=== PATIENT | female | born 1995 | race American Indian/Alaskan Native ===

== ENCOUNTER 2017-02-24 17:50 | Emergency (ER) | payer MEDICAID, OTHER ==
[2017-02-24 18:02] VITALS: BP 114/60
--- NOTE | 2017-02-24 18:23 | EDM.PDOC ---
[id number] 4d ABD PAINS Time Seen by Provider: 02/24/17 18:06 Source of Information: Reports: Patient History Limitations: Reports: No limitations - History of Present Illness INITIAL COMMENTS - FREE TEXT/NARRATIVE: patient complains of lower abdominal pain midline and right lower quadrant. No fever chills. No vomiting. She complained of feeling constipated. Describes it as menstrual pain. Describes irregular menstrual history. Unsure if she's having her period at this time. She describes some whitish vaginal discharge. She is sexually active. No fever chills or night sweats. Occasional nausea. Timing/Duration: Reports: Day(s):, Gradual onset, Waxing/waning Location: suprapubic Quality: Reports: ache Severity: mild Associated Symptoms (-Female): Reports: constipation - Related Data Allergies/ADRs: Allergies Allergy/AdvReac Type Severity Reaction Status Date / Time amoxicillin [Amoxicillin] Allergy Hives Verified 02/24/17 17:54 Home Meds: Home Meds . [No Known Home Meds] 01/01/14 [History] Past Medical History - Past Health History Medical/Surgical History: Denies Medical/Surgical History Social & Family History - Tobacco Use Smoking Status *Q: Never Smoker Second Hand Smoke Exposure: No - Alcohol Use Days Per Week of Alcohol Use: 0 - Recreational Drug Use Recreational Drug Use: No ED ROS GENERAL - Review of Systems Review Of Systems: See Below Constitutional: Reports: no symptoms HEENT: Reports: No symptoms Respiratory: Reports: No Symptoms Cardiovascular: Reports: No symptoms Endocrine: Reports: no symptoms GI/Abdominal: Reports: Abdominal pain, Constipation : Reports: no symptoms Musculoskeletal: Reports: no symptoms ED EXAM, GI/ABD - Physical Exam Exam: See Below Exam Limited By: No limitations General Appearance: alert, WD/WN, no apparent distress Respiratory/Chest: no respiratory distress, lungs clear Cardiovascular: regular rate, rhythm, no murmur GI/Abdominal: normal bowel sounds, soft, non tender, no distention, tenderness ( slight tenderness to palpation to the right and left lower quadrant. No pain along the periumbilical.). No: guarding, rebound, Cadet's sign (Female) Exam: Other (patient refused pelvic exam) Back Exam: No: CVA tenderness (L), CVA tenderness (R) Extremities: normal capillary refill Neurological: alert, oriented, CN II-XII intact Psychiatric: normal affect, normal mood Skin Exam: Warm, Dry, Intact Course - Vital Signs Last Recorded V/S: Last Vital Signs Temp 98.1 F 02/24/17 17:59 Pulse 75 02/24/17 17:59 Resp 20 02/24/17 17:59 BP 114/60 02/24/17 17:59 Pulse Ox 98 02/24/17 17:59 - Orders/Labs/Meds Labs: Laboratory Tests 02/24/17 02/24/17 02/24/17 Range/Units 18:14 18:14 18:30 WBC 8.1 (5.0-10.0) 10^3/uL RBC 4.49 (4.2-5.4) 10^6/uL Hgb 13.8 (12.0-16.0) g/dL Hct 40.6 (37.0-47.0) % MCV 90.4 (80-100) fL MCH 30.7 (27.0-34.0) pg MCHC 34.0 (33.0-35.0) g/dL Plt Count 247 (150-450) 10^3/uL Neut % (Auto) 65.2 (42.2-75.2) % Lymph % (Auto) 24.0 (20.5-50.1) % [place] % (Auto) 8.1 H (2-8) % Eos % (Auto) 2.6 (1.0-3.0) % Baso % (Auto) 0.1 (0.0-1.0) % Sodium 138 (135-145) mmol/L Potassium 3.6 (3.6-5.0) mmol/L Chloride 104 (101-111) mmol/L Carbon Dioxide 27.0 (21.0-31.0) mmol/L Anion Gap 10.6 BUN 13 (7-18) mg/dL Creatinine 0.6 (0.6-1.3) mg/dL Est Cr Clr Drug Dosing 111.92 mL/min Estimated GFR (MDRD) > 60 Glucose 96 (74-105) mg/dL Calcium 9.0 (8.4-10.2) mg/dl Urine Color (YELLOW) Urine Appearance (CLEAR) Urine pH (5.0-9.0) Ur Specific Reynolds (1.005-1.030) Urine Protein (NEGATIVE) Urine Glucose (UA) (NEGATIVE) Urine Ketones (NEGATIVE) Urine Occult Blood (NEGATIVE) Urine Nitrite (NEGATIVE) Urine Bilirubin (NEGATIVE) Urine Urobilinogen (0.2-1.0) mg/dL Ur Leukocyte Esterase (NEGATIVE) Urine RBC /HPF Urine WBC (0-5/HPF) /HPF Ur Epithelial Cells /HPF Amorphous Sediment (0/HPF) /HPF Urine Bacteria (0-FEW/HPF) /HPF Urine Mucus /LPF Urine HCG, Qual Negative 02/24/17 Range/Units 18:30 WBC (5.0-10.0) 10^3/uL RBC (4.2-5.4) 10^6/uL Hgb (12.0-16.0) g/dL Hct (37.0-47.0) % MCV (80-100) fL MCH (27.0-34.0) pg MCHC (33.0-35.0) g/dL Plt Count (150-450) 10^3/uL Neut % (Auto) (42.2-75.2) % Lymph % (Auto) (20.5-50.1) % [place] % (Auto) (2-8) % Eos % (Auto) (1.0-3.0) % Baso % (Auto) (0.0-1.0) % Sodium (135-145) mmol/L Potassium (3.6-5.0) mmol/L Chloride (101-111) mmol/L Carbon Dioxide (21.0-31.0) mmol/L Anion Gap BUN (7-18) mg/dL Creatinine (0.6-1.3) mg/dL Est Cr Clr Drug Dosing mL/min Estimated GFR (MDRD) Glucose (74-105) mg/dL Calcium (8.4-10.2) mg/dl Urine Color Yellow (YELLOW) Urine Appearance Slightly cloudy (CLEAR) Urine pH 7.0 (5.0-9.0) Ur Specific Reynolds 1.020 (1.005-1.030) Urine Protein Negative (NEGATIVE) Urine Glucose (UA) Negative (NEGATIVE) Urine Ketones Negative (NEGATIVE) Urine Occult Blood Negative (NEGATIVE) Urine Nitrite Negative (NEGATIVE) Urine Bilirubin Negative (NEGATIVE) Urine Urobilinogen 0.2 (0.2-1.0) mg/dL Ur Leukocyte Esterase Negative (NEGATIVE) Urine RBC Not seen /HPF Urine WBC 0-5 (0-5/HPF) /HPF Ur Epithelial Cells Few /HPF Amorphous Sediment Many H (0/HPF) /HPF Urine Bacteria Occasional (0-FEW/HPF) /HPF Urine Mucus Few H /LPF Urine HCG, Qual - Re-Assessments/Exams Free Text/Narrative Re-Assessment/Exam: labs are reviewed with patient. She wishes to not proceed with pelvic exam. Ultrasound is not available.discussed differential diagnoses with patient and need to establish with presentation manager 02/24/17 19:16 Departure - Departure Time of Disposition: 19:36 Disposition: Home, Self-Care 01 Condition: good Clinical Impression: Dysmenorrhea, Irregular menstrual cycle Instructions: Dysmenorrhea Forms: ED Department Discharge Additional Instructions: followup with regular provider this week. You may benefit from seeing a presentation manager. Call or return to the ER if there's any problems questions or concerns
[2017-02-24 18:38] LABS: CHLORIDE,CL 104 mmol/L (101-111); SODIUM,NA 138 mmol/L (135-145)
== END 2017-02-24 19:23 | disposition home or self-care (01) ==
LOC: DL.ED 17:50
DX: N94.6 Dysmenorrhea, unspecified (principal); N92.6 Irregular menstruation, unspecified; Z88.1 Allergy status to other antibiotic agents
CPT/HCPCS: 36415; 80048; 81001; 81025; 85025; 99282; 99284

== ENCOUNTER 2017-10-03 01:54 | Emergency (ER) | payer OTHER ==
[2017-10-03 02:10] VITALS: BP 111/55
[2017-10-03] MEDS ORDERED: Ondansetron 4 MG/2 ML SDV IV ONE (02:14)
[2017-10-03] MEDS ORDERED: Sodium Chloride 0.9% 1,000 ML IV ONE (02:14)
--- NOTE | 2017-10-03 02:16 | EDM.PDOC ---
ED HPI GENERAL MEDICAL PROBLEM - General Chief Complaint: Gastrointestinal Problem Stated Complaint: FLU LIKE SYMPTOMS [id number] Time Seen by Provider: 10/03/17 02:14 Source of Information: Reports: Patient History Limitations: Reports: No Limitations - History of Present Illness INITIAL COMMENTS - FREE TEXT/NARRATIVE: started F/C with vomiting tonight, also has a positive preg test. Generalized Pain Score (Numeric/FACES): 6 - Related Data Allergies Allergy/AdvReac Type Severity Reaction Status Date / Time amoxicillin [Amoxicillin] Allergy Hives Verified 10/03/17 02:01 Home Meds: Home Meds . [No Known Home Meds] 01/01/14 [History] Past Medical History - Past Health History Medical/Surgical History: Denies Medical/Surgical History Social & Family History - Tobacco Use Smoking Status *Q: Never Smoker Used Tobacco, but Quit: No Second Hand Smoke Exposure: No - Caffeine Use Caffeine Use: Reports: Coffee, Energy Drinks, Soda - Alcohol Use Days Per Week of Alcohol Use: 0 - Recreational Drug Use Recreational Drug Use: No ED ROS GENERAL - Review of Systems Review Of Systems: ROS reveals no pertinent complaints other than HPI. ED EXAM, GI/ABD - Physical Exam Exam: See Below Exam Limited By: No Limitations General Appearance: Alert, WD/WN, Mild Distress, Other (discomfort) Ears: Hearing Grossly Normal Throat/Mouth: Normal Voice, No Airway Compromise Head: Atraumatic Neck: Non-Tender, Full Range of Motion Respiratory/Chest: No Respiratory Distress Cardiovascular: Regular Rate, Rhythm GI/Abdominal Exam: Soft, Tender, Other (periumb minimal discomfort). No: Distended, Guarding, Rigid, Rebound Neurological: Alert, Oriented, Normal Cognition, Normal Gait, No Motor/Sensory Deficits Psychiatric: Flat Affect Skin Exam: Warm, Dry, Normal Color Lymphatic: No Adenopathy Course - Vital Signs Last Recorded V/S: Last Vital Signs Temp 37.9 C 10/03/17 02:17 Pulse 120 H 10/03/17 02:03 Resp 18 10/03/17 02:03 BP 111/55 L 10/03/17 02:03 Pulse Ox 98 10/03/17 02:03 - Orders/Labs/Meds Labs: Laboratory Tests 10/03/17 10/03/17 10/03/17 Range/Units 02:20 02:20 02:20 WBC 19.2 H (5.0-10.0) 10^3/uL RBC 4.37 (4.2-5.4) 10^6/uL Hgb 13.4 (12.0-16.0) g/dL Hct 38.5 (37.0-47.0) % MCV 88.1 (80-100) fL MCH 30.7 (27.0-34.0) pg MCHC 34.8 (33.0-35.0) g/dL Plt Count 248 (150-450) 10^3/uL Neut % (Auto) 89.0 H (42.2-75.2) % Lymph % (Auto) 3.7 L (20.5-50.1) % [place] % (Auto) 6.8 (2-8) % Eos % (Auto) 0.2 L (1.0-3.0) % Baso % (Auto) 0.3 (0.0-1.0) % Sodium 136 (135-145) mmol/L Potassium 3.5 L (3.6-5.0) mmol/L Chloride 105 (101-111) mmol/L Carbon Dioxide 22.0 (21.0-31.0) mmol/L Anion Gap 12.5 BUN 9 (7-18) mg/dL Creatinine 0.6 (0.6-1.3) mg/dL Est Cr Clr Drug Dosing 110.98 mL/min Estimated GFR (MDRD) > 60 BUN/Creatinine Ratio 15.00 Glucose 114 H (74-105) mg/dL Lactic Acid 0.8 (0.5-2.2) mmol/L Calcium 9.3 (8.4-10.2) mg/dl Total Bilirubin 1.1 H (0.2-1.0) mg/dL AST 24 (10-42) IU/L ALT 24 (10-60) IU/L Alkaline Phosphatase 53 (42-121) IU/L Total Protein 7.3 (6.7-8.2) g/dl Albumin 4.2 (3.2-5.5) g/dl Globulin 3.1 Albumin/Globulin Ratio 1.35 HCG, Qual Positive Meds: Medications Discontinued Medications Generic Name Dose Route Start Last Admin Trade Name Freq PRN Reason Stop Dose Admin Sodium Chloride 1,000 mls @ 999 mls/hr 10/03/17 02:14 10/03/17 02:31 Normal Saline IV 10/03/17 03:14 999 mls/hr .BOLUS ONE Administration Ondansetron HCl 4 mg 10/03/17 02:14 10/03/17 02:32 Zofran IV 10/03/17 02:15 4 mg ONETIME ONE Administration - Re-Assessments/Exams Free Text/Narrative Re-Assessment/Exam: 10/03/17 02:59 re-exam; s/p IV = much better, results discussed with pt. Departure - Departure Time of Disposition: 03:30 Disposition: Home, Self-Care 01 Condition: Good Clinical Impression: Gastroenteritis, Vomiting Qualifiers: Weeks of gestation: less than 8 weeks Qualified Code(s): Z3A.01 - Less than 8 weeks gestation of - Discharge Information Instructions: Dehydration, Adult, [id number] Referrals: PCP,None [Primary Care Provider] - Forms: ED Department Discharge Additional Instructions: 1) avoid solid foods next 48 hours 2) have broth, jello, juice 3) take tylenol as needed for fever 4) see clinic for exam 5) recheck if there is any change or concern
[2017-10-03 02:44] LABS: CHLORIDE,CL 105 mmol/L (101-111); SODIUM,NA 136 mmol/L (135-145)
== END 2017-10-03 03:34 | disposition home or self-care (01) ==
LOC: DL.ED 01:54
DX: O99.611 Diseases of the digestive system complicating pregnancy, first trimester (principal); K52.9 Noninfective gastroenteritis and colitis, unspecified; Z88.1 Allergy status to other antibiotic agents; Z3A.01 Less than 8 weeks gestation of pregnancy
CPT/HCPCS: 36415; 80053; 83605; 84703; 85025; 96361; 96374; 99284; J2405; J7030

== ENCOUNTER 2018-06-12 03:05 | Inpatient (IN) | payer OTHER ==
[2018-06-12] MEDS ORDERED: Nalbuphine 10 MG/1 ML Vial IM PRN (03:35)
[2018-06-12] MEDS: Lactated Ringers 1,000 ML IV SCH ×3 (04:00→17:59)
[2018-06-12] MEDS ORDERED: Oxytocin/Normal Saline 30 UNIT/500 ML BAG IV SCH ×2 (13:15→16:00)
[2018-06-12] MEDS ORDERED: Butorphanol 2 MG/ML SDV IVPUSH ONE (14:26)
--- NOTE | 2018-06-12 14:56 | HP ---
HISTORY OF PRESENT ILLNESS: This patient is a very pleasant 22-year-old 1, para 0 patient who is followed most of the time by Dr. Lovelace. The patient did come in late last night, the first time around midnight or so and the nurses have thoroughly reported to me on that encounter, the patient was thought to have false labor and her cervix was fingertip dilated and 60% effaced on the nurse's exam. The patient was hydrated and observed and did have category 1 heart tones. She was permitted to go home. The patient did return back several hours later, or around 3:15 or so this morning and stated that her contractions were stronger and that the patient thought she was in labor. heart tones were also category 1 at that time. The nurses and I decided to keep her here of course and she had come back a second time and the nurses did ask for an order of Nubain because of the patient's labor pains. The patient was given 20 mg of Nubain IM. There was the usual subsequent heart tone affect with a slight pseudo sinusoidal rhythm of the heart tones after Nubain was given. Her contractions were occurring about every 3 minutes of moderate quality. The nurses had re-checked her cervix and it was then fingertip and about 80% effaced. The patient has been kept here for further observation. I have also seen the patient at about 6:50 a.m. today and proceeded with history and physical examination. She denies any complications that she is aware of. Her lab data is all unremarkable including blood type B positive and antibody screen is negative. The patient is negative for group B strep. I understand that her hepatitis C status still needs to be retrieved from the [employer] system. The patient has stated that her contractions are somewhat closer and stronger as mentioned above. Bag of schmitt remains intact. PAST MEDICAL HISTORY: She denies any knowledge of heart, lung, liver, or kidney disease. ALLERGIES: Amoxicillin does cause hives. PREVIOUS SURGERY: [place] tooth extraction. MEDICATIONS AT PRESENT: vitamins and no other medications are taken at present. FAMILY HISTORY: Essentially unremarkable, and she denies any knowledge of genetic diseases that seem to run strongly in the family. SOCIAL HISTORY: She is engaged to her fiance, Lopez, I believe. She lives in [place] and she does work at [employer] / [employer] office. She denies alcohol and is a nonsmoker and denies street drug usage. PHYSICAL EXAMINATION: Vital Signs: Within normal limits. Please see the EHR. HEENT: Sclerae anicteric. Lungs: Clear to A. Heart: Regular rhythm without murmur. There is negative CVA tenderness bilaterally. Gastrointestinal: A term size fetus is palpated abdominally with the vertex as the presenting part. heart tones still reveal some residual pseudo sinusoidal activity from the prior Nubain. Genitourinary: My cervical examination reveals fingertip dilated and 80-90% effaced with the vertex at -1 station. Bag of schmitt is palpated. There are accelerations of the heartbeat with scalp stimulation. The pelvis appears to be clinically adequate. Extremities: She does have trace ankle edema bilaterally and DTRs are normoreflexic. IMPRESSION: This patient is quite likely in early labor and she did return to the hospital a second time early this morning because of her contractions getting closer and stronger. She does live in [place] and therefore because of her apparent early labor, she is admitted. We have thoroughly discussed her with Dr. Willie Huggins, who is coming contract processor at the present time. There also is perhaps a 20% to 25% chance that the patient's contractions could space out later on and maybe this does not represent true labor. heart tones will be continued to be observed closely. We have thoroughly discussed our plan of action with the patient and all of her questions have been answered. As mentioned above, the patient is a 22-year-old, 1, para 0, at 40 weeks 2 days' gestation. I understand that the patient did have an OB clinic appointment with Dr. Edwards today since Dr. Lovelace is still out of town. [facility] /[phone]
[2018-06-12] MEDS ORDERED: Butorphanol 2 MG/ML SDV IVPUSH PRN (15:46)
[2018-06-12] MEDS ORDERED: Lactated Ringers 500 ML IV ONE (15:46)
[2018-06-12] MEDS ORDERED: Acetaminophen 325 MG Tab PO PRN (15:46)
[2018-06-12] MEDS ORDERED: fentaNYL 100 MCG/2 ML SDV IVPUSH PRN (15:46)
[2018-06-12] MEDS ORDERED: Carboprost Tromethamine 250 MCG/1 ML Amp IM PRN (15:46)
[2018-06-12] MEDS ORDERED: Tranexamic Acid 1,000 MG in Sodium Chloride 0.9% 100 ML IV PRN (15:46)
[2018-06-12] MEDS ORDERED: Lidocaine 1% 30 ML SDV INJECT PRN (15:46)
[2018-06-12] MEDS ORDERED: Misoprostol 400 MCG (4 X 100 MCG TAB) RECTAL PRN (15:46)
[2018-06-12] MEDS ORDERED: Ondansetron 4 MG/2 ML SDV IV PRN (15:46)
[2018-06-12] MEDS ORDERED: Methylergonovine 0.2 MG/1 ML Amp IM PRN (15:46)
[2018-06-12] MEDS ORDERED: Sodium Chloride 0.9% 10 ML Syringe FLUSH PRN (15:46)
[2018-06-12] MEDS ORDERED: Lactated Ringers 1,000 ML IV SCH (16:00)
--- NOTE | 2018-06-12 16:03 | US ---
Clinical history: 22-year-old gravid female for Limited OB evaluation (amniotic fluid index?) Interpretation: Midline uterus enlarged with a single live ( heart rate 133 bpm) intrauterine gestation longitud inal lie and cephalic presentation. Low amniotic fluid i.e. amniotic fluid index 5.27 cm (JAME range 0 to 5 cm equals oligohydramnios). Mature placenta with calcifications located anteriorly corpus of the uterus to the left of midline bu t clearly away from the internal cervical os.
--- NOTE | 2018-06-12 17:30 | PCM.PNLD ---
Labor Progress Note - VS & Meds Vital Signs: Last Vital Signs Temp 98.8 F 06/12/18 10:56 Pulse 76 06/12/18 15:00 Resp 18 06/12/18 15:00 BP 128/60 06/12/18 15:00 Pulse Ox 98 06/12/18 09:30 Active Medications: Current Medications Acetaminophen (Tylenol) 650 mg PO Q4H PRN PRN Reason: Pain (Mild 1-3) and fever Butorphanol Tartrate (Stadol) 1 mg IVPUSH Q3H PRN PRN Reason: Pain Carboprost Tromethamine (Hemabate Ds) 250 mcg IM ASDIRECTED PRN PRN Reason: HEMORRHAGE Fentanyl (Sublimaze) 100 mcg IVPUSH Q1H PRN PRN Reason: Pain (moderate 4-6) Lactated Ringer's (Ringers, Lactated) 1,000 mls @ 125 mls/hr IV ASDIRECTED ASHELY Last Admin: 06/12/18 04:31 Dose: 125 mls/hr Oxytocin/Sodium Chloride (Pitocin In Ns 30 Unit/500 Ml) 30 unit in 500 mls @ 1 mls/hr IV TITRATE ASHELY; Protocol Last Titration: 06/12/18 15:28 Dose: 3 munits/min, 3 mls/hr Lactated Ringer's (Ringers, Lactated) 500 mls @ 125 drops/hr IV .BOLUS ONE Stop: 06/15/18 03:45 Lactated Ringer's (Ringers, Lactated) 1,000 mls @ 125 mls/hr IV ASDIRECTED [facility] Oxytocin/Sodium Chloride (Pitocin In Ns 30 Unit/500 Ml) 30 unit in 500 mls @ 2 mls/hr IV TITRATE ASHELY; Protocol Tranexamic Acid 1,000 mg/ (Sodium Chloride) 110 mls @ 660 mls/hr IV ONETIME PRN PRN Reason: Bleeding Lidocaine HCl (Xylocaine-Mpf 1%) 10 ml INJECT ASDIRECTED PRN PRN Reason: Perineal Repair Methylergonovine Maleate (Methergine) 0.2 mg IM ASDIRECTED PRN PRN Reason: Hemorrhage Misoprostol (Cytotec) 800 mcg RECTAL ASDIRECTED PRN PRN Reason: Hemorrhage Nalbuphine HCl (Nubain) 20 mg IM Q3H PRN PRN Reason: Pain Last Admin: 06/12/18 04:11 Dose: 20 mg Ondansetron HCl (Zofran) 4 mg IV Q4H PRN PRN Reason: Nausea/Vomiting Sodium Chloride (Saline Flush) 10 ml FLUSH ASDIRECTED PRN PRN Reason: Keep Vein Open Discontinued Medications Butorphanol Tartrate (Stadol) 1 mg IVPUSH ONETIME ONE Stop: 06/12/18 14:27 Last Admin: 06/12/18 15:45 Dose: 1 mg - Uterine Contractions Uterine Monitoring Mode: External Gibbon Contraction Frequency (min): 2-5 Contraction Duration (sec): 40-80 Contraction Intensity: Moderate to Strong Uterine Resting Tone: Soft - Monitoring Monitor Mode: External Ultrasound Heart Rate (FHR) Baseline: 140 Heart Rate (FHR) Variability: Moderate (6-25 bmp) Accelerations: Present, 15x15 Decelerations: None Strip Review: Category I - Vaginal Exam Dilation (cm): 2 Effacement (Percent): 100 Station: -1 Cervical Position: Midposition Sterile Vaginal Exam Performed By: Willie Huggins (JAME- 5.27) Vaginal Exam Comment: AROM Thick meconium stained fluid
[2018-06-12] MEDS ORDERED: Bupivacaine 0.75%/D5W 2 ML Amp ONE (21:37)
[2018-06-12] MEDS ORDERED: fentaNYL 100 MCG/2 ML SDV ONE (21:38)
[2018-06-12] MEDS ORDERED: EPINEPHrine 1 MG/ML SDV ONE (21:38)
--- NOTE | 2018-06-12 22:21 | PCM.PRNOTE ---
- Free Text/Narrative Note: Requested to provide analgesia to full term patient in severe pain. Upon entering the room, patient is supine in bed complaining of severe abdominal/ pelvic pain and discomfort. Procedure was discussed with patient including adverse outcomes and expectations. Pt consented to analgesia, SAB/IT. Pt placed into a sitting position. Landmarks for SAB/IT were identified and marked. Hands were washed and appropriate PPE was applied. Back was prepped with betadine x3. A sterile, transparent, fenestrated drape was applied. Excess betadine was removed. Using 3 mL of a 1% lidocaine solution, a skin wheel was placed at the L3/L4 interspace. A 24 ga (4 inch) Pencan spinal needle was inserted until positive for CSF. Negative for heme or paresthesias. Injected fentanyl 30 mcg, sufentanil 20 mcg, and 9.75 mg of a 0.75% bupivacaine solution with an epi wash. Pt was placed left lateral position for approximately 20 minutes. There were zero complications or adverse outcomes. Will continue to monitor. Procedure Date & Time: 06/12/18 [id number]
--- NOTE | 2018-06-13 00:27 | PCM.PNLD ---
Labor Progress Note - VS & Meds Vital Signs: Last Vital Signs Temp 97.5 F 06/12/18 23:45 Pulse 81 06/12/18 23:45 Resp 18 06/12/18 22:15 BP 101/49 L 06/12/18 22:15 Pulse Ox 99 06/12/18 23:45 Active Medications: Current Medications Acetaminophen (Tylenol) 650 mg PO Q4H PRN PRN Reason: Pain (Mild 1-3) and fever Butorphanol Tartrate (Stadol) 1 mg IVPUSH Q3H PRN PRN Reason: Pain Last Admin: 06/12/18 18:57 Dose: 1 mg Carboprost Tromethamine (Hemabate Ds) 250 mcg IM ASDIRECTED PRN PRN Reason: HEMORRHAGE Fentanyl (Sublimaze) 100 mcg IVPUSH Q1H PRN PRN Reason: Pain (moderate 4-6) Lactated Ringer's (Ringers, Lactated) 1,000 mls @ 125 mls/hr IV ASDIRECTED ASHELY Last Admin: 06/12/18 17:59 Dose: 125 mls/hr Oxytocin/Sodium Chloride (Pitocin In Ns 30 Unit/500 Ml) 30 unit in 500 mls @ 1 mls/hr IV TITRATE ASHELY; Protocol Last Titration: 06/12/18 23:09 Dose: 0 munits/min, 0 mls/hr Lactated Ringer's (Ringers, Lactated) 500 mls @ 125 drops/hr IV .BOLUS ONE Stop: 06/15/18 03:45 Lactated Ringer's (Ringers, Lactated) 1,000 mls @ 125 mls/hr IV ASDIRECTED ASHELY Last Admin: 06/12/18 23:17 Dose: 125 mls/hr Oxytocin/Sodium Chloride (Pitocin In Ns 30 Unit/500 Ml) 30 unit in 500 mls @ 2 mls/hr IV TITRATE ASHELY; Protocol Tranexamic Acid 1,000 mg/ (Sodium Chloride) 110 mls @ 660 mls/hr IV ONETIME PRN PRN Reason: Bleeding Lidocaine HCl (Xylocaine-Mpf 1%) 10 ml INJECT ASDIRECTED PRN PRN Reason: Perineal Repair Methylergonovine Maleate (Methergine) 0.2 mg IM ASDIRECTED PRN PRN Reason: Hemorrhage Misoprostol (Cytotec) 800 mcg RECTAL ASDIRECTED PRN PRN Reason: Hemorrhage Nalbuphine HCl (Nubain) 20 mg IM Q3H PRN PRN Reason: Pain Last Admin: 06/12/18 04:11 Dose: 20 mg Ondansetron HCl (Zofran) 4 mg IV Q4H PRN PRN Reason: Nausea/Vomiting Last Admin: 06/12/18 21:32 Dose: 4 mg Sodium Chloride (Saline Flush) 10 ml FLUSH ASDIRECTED PRN PRN Reason: Keep Vein Open Discontinued Medications Bupivacaine HCl/Dextrose (Marcaine 0.75% Spinal) Confirm Administered Dose 2 ml .ROUTE .STK-MED ONE Stop: 06/12/18 21:38 Last Admin: 06/12/18 22:28 Dose: Not Given Butorphanol Tartrate (Stadol) 1 mg IVPUSH ONETIME ONE Stop: 06/12/18 14:27 Last Admin: 06/12/18 15:45 Dose: 1 mg Epinephrine HCl (Adrenalin) Confirm Administered Dose 1 mg .ROUTE .STK-MED ONE Stop: 06/12/18 21:39 Last Admin: 06/12/18 22:28 Dose: Not Given Fentanyl (Sublimaze) Confirm Administered Dose 100 mcg .ROUTE .STK-MED ONE Stop: 06/12/18 21:39 Last Admin: 06/12/18 22:29 Dose: Not Given Sufentanil Citrate (Sufenta) Confirm Administered Dose 50 mcg .ROUTE .STK-MED ONE Stop: 06/12/18 21:40 Last Admin: 06/12/18 22:29 Dose: Not Given - Uterine Contractions Uterine Monitoring Mode: External [place], Palpation Contraction Frequency (min): 2-4 Contraction Duration (sec): 55-60 Contraction Intensity: Moderate Uterine Resting Tone: Soft - Monitoring Monitor Mode: Spiral Electrode Heart Rate (FHR) Baseline: 135 Heart Rate (FHR) Variability: Moderate (6-25 bmp) Accelerations: Present, 15x15 Decelerations: None, Variable, Intermittent (<50% x 20 min) Strip Review: Category I - Vaginal Exam Dilation (cm): 6 Effacement (Percent): 90 Station: -1 Cervical Position: Anterior Sterile Vaginal Exam Performed By: Willie Huggins Vaginal Exam Comment: FSE and IUPC placed - Labor Progress (Free Text) Labor Progress: Will start Amnioinfusion NS 400 mL bolus over 30 minutes then 100 mL per hour maintainenceto help thin out meconium stained fluid and assist in stopping variable declerations.
[2018-06-13] MEDS ORDERED: Sodium Chloride 0.9% 1,000 ML IRR SCH (00:30)
[2018-06-13] MEDS ORDERED: Carboprost Tromethamine 250 MCG/1 ML Amp IM ONE (02:32)
[2018-06-13] MEDS ORDERED: ceFAZolin 2 GM in Premix Bag 1 BAG IV ONE (02:32)
[2018-06-13] MEDS ORDERED: Citric Acid/Sodium Citrate Solution 30 ML Cup PO ONE (02:32)
[2018-06-13] MEDS ORDERED: ePHEDrine 50 MG/ML SDV IVPUSH PRN (02:32)
[2018-06-13] MEDS ORDERED: Methylergonovine 0.2 MG/1 ML Amp IM PRN (02:32)
[2018-06-13] MEDS ORDERED: Naloxone 2 MG/2 ML Syringe IVPUSH PRN (02:32)
[2018-06-13] MEDS ORDERED: Zolpidem 5 MG Tab PO PRN (02:32)
[2018-06-13] MEDS ORDERED: Acetaminophen 325 MG Tab PO PRN (02:32)
[2018-06-13] MEDS ORDERED: Misoprostol 400 MCG (4 X 100 MCG TAB) RECTAL PRN (02:32)
[2018-06-13] MEDS ORDERED: Acetaminophen/oxyCODONE 325-5 MG Tab PO PRN (02:32)
[2018-06-13] MEDS ORDERED: Tranexamic Acid 1,000 MG in Sodium Chloride 0.9% 100 ML IV PRN ×4 (02:32)
[2018-06-13] MEDS ORDERED: Ondansetron 4 MG/2 ML SDV IV PRN (02:32)
[2018-06-13] MEDS ORDERED: diphenhydrAMINE 50 MG/ML SDV IVPUSH PRN (02:32)
[2018-06-13] MEDS ORDERED: Measles, Mumps & Rubella Vaccine 0.5 ML SDV SUBCUT ONE (02:32)
[2018-06-13] MEDS ORDERED: Oxytocin/Normal Saline 60 UNIT/1,000 ML BAG ONE (02:45)
[2018-06-13] MEDS ORDERED: Lactated Ringers 1,000 ML IV SCH ×3 (02:45)
[2018-06-13] MEDS ORDERED: Ketorolac 30 MG/ML SDV IVPUSH SCH (02:45)
--- NOTE | 2018-06-13 02:48 | PCM.PNLD ---
Labor Progress Note - VS & Meds Vital Signs: Last Vital Signs Temp 97.5 F 06/12/18 23:45 Pulse 85 06/13/18 02:00 Resp 20 06/13/18 02:00 BP 121/50 L 06/13/18 02:00 Pulse Ox 99 06/13/18 02:00 Active Medications: Current Medications Acetaminophen (Tylenol) 650 mg PO Q4H PRN PRN Reason: Pain (Mild 1-3) and fever Butorphanol Tartrate (Stadol) 1 mg IVPUSH Q3H PRN PRN Reason: Pain Last Admin: 06/12/18 18:57 Dose: 1 mg Carboprost Tromethamine (Hemabate Ds) 250 mcg IM ASDIRECTED PRN PRN Reason: HEMORRHAGE Fentanyl (Sublimaze) 100 mcg IVPUSH Q1H PRN PRN Reason: Pain (moderate 4-6) Lactated Ringer's (Ringers, Lactated) 1,000 mls @ 125 mls/hr IV ASDIRECTED ASHELY Last Admin: 06/12/18 17:59 Dose: 125 mls/hr Oxytocin/Sodium Chloride (Pitocin In Ns 30 Unit/500 Ml) 30 unit in 500 mls @ 1 mls/hr IV TITRATE ASHELY; Protocol Last Titration: 06/13/18 02:15 Dose: 0 munits/min, 0 mls/hr Lactated Ringer's (Ringers, Lactated) 500 mls @ 125 drops/hr IV .BOLUS ONE Stop: 06/15/18 03:45 Lactated Ringer's (Ringers, Lactated) 1,000 mls @ 125 mls/hr IV ASDIRECTED ASHELY Last Admin: 06/12/18 23:17 Dose: 125 mls/hr Oxytocin/Sodium Chloride (Pitocin In Ns 30 Unit/500 Ml) 30 unit in 500 mls @ 2 mls/hr IV TITRATE ASHELY; Protocol Tranexamic Acid 1,000 mg/ (Sodium Chloride) 110 mls @ 660 mls/hr IV ONETIME PRN PRN Reason: Bleeding Sodium Chloride (Normal Saline) 1,000 mls @ 800 mls/hr IRR ASDIRECTED ASHELY; Protocol Stop: 06/14/18 00:31 Last Admin: 06/13/18 00:20 Dose: 800 mls/hr Lidocaine HCl (Xylocaine-Mpf 1%) 10 ml INJECT ASDIRECTED PRN PRN Reason: Perineal Repair Methylergonovine Maleate (Methergine) 0.2 mg IM ASDIRECTED PRN PRN Reason: Hemorrhage Misoprostol (Cytotec) 800 mcg RECTAL ASDIRECTED PRN PRN Reason: Hemorrhage Nalbuphine HCl (Nubain) 20 mg IM Q3H PRN PRN Reason: Pain Last Admin: 06/12/18 04:11 Dose: 20 mg Ondansetron HCl (Zofran) 4 mg IV Q4H PRN PRN Reason: Nausea/Vomiting Last Admin: 06/12/18 21:32 Dose: 4 mg Sodium Chloride (Saline Flush) 10 ml FLUSH ASDIRECTED PRN PRN Reason: Keep Vein Open Discontinued Medications Bupivacaine HCl/Dextrose (Marcaine 0.75% Spinal) Confirm Administered Dose 2 ml .ROUTE .STK-MED ONE Stop: 06/12/18 21:38 Last Admin: 06/12/18 22:28 Dose: Not Given Butorphanol Tartrate (Stadol) 1 mg IVPUSH ONETIME ONE Stop: 06/12/18 14:27 Last Admin: 06/12/18 15:45 Dose: 1 mg Epinephrine HCl (Adrenalin) Confirm Administered Dose 1 mg .ROUTE .STK-MED ONE Stop: 06/12/18 21:39 Last Admin: 06/12/18 22:28 Dose: Not Given Fentanyl (Sublimaze) Confirm Administered Dose 100 mcg .ROUTE .STK-MED ONE Stop: 06/12/18 21:39 Last Admin: 06/12/18 22:29 Dose: Not Given Sufentanil Citrate (Sufenta) Confirm Administered Dose 50 mcg .ROUTE .STK-MED ONE Stop: 06/12/18 21:40 Last Admin: 06/12/18 22:29 Dose: Not Given - Uterine Contractions Uterine Monitoring Mode: IUPC Contraction Frequency (min): 3-4 Contraction Duration (sec): 60-80 Contraction Intensity: Moderate Uterine Resting Tone: Soft - Monitoring Monitor Mode: Spiral Electrode Heart Rate (FHR) Baseline: 135 Heart Rate (FHR) Variability: Moderate (6-25 bmp) Accelerations: Present, 15x15 Decelerations: None, Variable, Recurrent (>50% x 20 min), Intermittent (< 50% x 20 min) Strip Review: Category II - Vaginal Exam Dilation (cm): 6 Effacement (Percent): 90 Station: -1 Cervical Position: Anterior Sterile Vaginal Exam Performed By: Willie Huggins ( intolerance to labor) Vaginal Exam Comment: Cervix is edematous No change in cervix over past 4 hours Repetative variable decelerations with prolonged deceleration so turned Pitocin off.
[2018-06-13] MEDS ORDERED: Ferrous Sulfate 325 MG Tab PO SCH (08:00)
[2018-06-13] MEDS: Docusate Sodium 100 MG Cap PO PRN ×2 (08:40→22:02)
[2018-06-13] MEDS: Simethicone 80 MG Tab.Chew PO SCH ×4 (08:40→22:02)
[2018-06-13] MEDS: Prenatal Multivitamin with Calcium/Folic Acid/Iron Tab PO SCH (08:40)
[2018-06-13] MEDS: Lactated Ringers 1,000 ML IV SCH ×2 (08:42→16:41)
[2018-06-13] MEDS: Ketorolac 30 MG/ML SDV IVPUSH SCH ×3 (10:31→22:02)
[2018-06-13] MEDS: Ferrous Sulfate 325 MG Tab PO SCH (17:31)
[2018-06-14] MEDS: Docusate Sodium 100 MG Cap PO PRN ×2 (08:12→21:46)
[2018-06-14] MEDS: Prenatal Multivitamin with Calcium/Folic Acid/Iron Tab PO SCH (08:12)
[2018-06-14] MEDS: Ferrous Sulfate 325 MG Tab PO SCH ×2 (08:12→17:20)
[2018-06-14] MEDS: Simethicone 80 MG Tab.Chew PO SCH ×4 (08:13→21:46)
[2018-06-14] MEDS: Ibuprofen 800 MG Tab PO PRN ×2 (08:13→17:20)
[2018-06-14] MEDS: Acetaminophen/oxyCODONE 325-5 MG Tab PO PRN ×4 (08:14→21:46)
--- NOTE | 2018-06-14 09:57 | PCM.PNPP ---
- General Info Date of Service: 06/14/18 (PPD/POD # 1 S/P Primary LTC/S) Functional Status: Reports: Pain Controlled, Tolerating Diet, Ambulating - Review of Systems General: Reports: No Symptoms HEENT: Reports: No Symptoms Pulmonary: Reports: No Symptoms Cardiovascular: Reports: No Symptoms Gastrointestinal: Reports: No Symptoms Genitourinary: Reports: No Symptoms Musculoskeletal: Reports: No Symptoms Skin: Reports: No Symptoms Neurological: Reports: No Symptoms Psychiatric: Reports: No Symptoms - General Info Date of Service: 06/14/18 (POD/PPD # 1 S/P Primary LTC/S) - Patient Data Vital Signs - Most Recent: Last Vital Signs Temp 98.7 F 06/14/18 08:00 Pulse 79 06/14/18 08:00 Resp 16 06/14/18 08:00 BP 112/58 L 06/14/18 08:00 Pulse Ox 99 06/14/18 08:00 Weight - Most Recent: 172 lb I&O - Last 24 Hours: Intake & Output 06/13/18 06/14/18 06/14/18 22:59 06:59 14:59 Intake Total 1015 Output Total 1500 1175 Balance -485 -1175 Lab Results - Last 24 Hours: Laboratory Results - last 24 hr 06/14/18 Range/Units 06:17 WBC 12.1 H (5.0-10.0) 10^3/uL RBC 2.92 L (4.2-5.4) 10^6/uL Hgb 8.0 L D (12.0-16.0) g/dL Hct 25.6 L (37.0-47.0) % MCV 87.7 (80-100) fL MCH 27.4 (27.0-34.0) pg MCHC 31.3 L (33.0-35.0) g/dL Plt Count 187 (150-450) 10^3/uL Med Orders - Current: Current Medications Acetaminophen (Tylenol) 650 mg PO Q4H PRN PRN Reason: Pain (Mild 1-3) and fever Acetaminophen (Tylenol) 650 mg PO Q6H PRN PRN Reason: mild pain or fever Butorphanol Tartrate (Stadol) 1 mg IVPUSH Q3H PRN PRN Reason: Pain Last Admin: 06/12/18 18:57 Dose: 1 mg Carboprost Tromethamine (Hemabate Ds) 250 mcg IM ASDIRECTED PRN PRN Reason: HEMORRHAGE Diphenhydramine HCl (Benadryl) 25 mg IVPUSH Q6H PRN PRN Reason: Itching or Nausea Docusate Sodium (Colace) 100 mg PO Q12H PRN PRN Reason: Constipation Last Admin: 06/14/18 08:12 Dose: 100 mg Ephedrine Sulfate (Ephedrine Sulfate) 5 mg IVPUSH SEECOMMENT PRN PRN Reason: Other Fentanyl (Sublimaze) 100 mcg IVPUSH Q1H PRN PRN Reason: Pain (moderate 4-6) Ferrous Sulfate (Ferrous Sulfate) 325 mg PO BIDMEALS [facility] Last Admin: 06/14/18 08:12 Dose: 325 mg Lactated Ringer's (Ringers, Lactated) 1,000 mls @ 125 mls/hr IV ASDIRECTED [facility] Last Admin: 06/13/18 16:41 Dose: 125 mls/hr Oxytocin/Sodium Chloride (Pitocin In Ns 30 Unit/500 Ml) 30 unit in 500 mls @ 1 mls/hr IV TITRATE ASHELY; Protocol Last Titration: 06/13/18 02:15 Dose: 0 munits/min, 0 mls/hr Lactated Ringer's (Ringers, Lactated) 500 mls @ 125 drops/hr IV .BOLUS ONE Stop: 06/15/18 03:45 Last Admin: 06/14/18 09:21 Dose: Not Given Lactated Ringer's (Ringers, Lactated) 1,000 mls @ 125 mls/hr IV ASDIRECTED [facility] Last Admin: 06/12/18 23:17 Dose: 125 mls/hr Oxytocin/Sodium Chloride (Pitocin In Ns 30 Unit/500 Ml) 30 unit in 500 mls @ 2 mls/hr IV TITRATE ASHELY; Protocol Last Titration: 06/13/18 08:41 Dose: Infused Tranexamic Acid 1,000 mg/ (Sodium Chloride) 110 mls @ 660 mls/hr IV ONETIME PRN PRN Reason: Bleeding Tranexamic Acid 1,000 mg/ (Sodium Chloride) 110 mls @ 660 mls/hr IV ONETIME PRN PRN Reason: Bleeding Tranexamic Acid 1,000 mg/ (Sodium Chloride) 110 mls @ 660 mls/hr IV ONETIME PRN PRN Reason: Bleeding Lactated Ringer's (Ringers, Lactated) 1,000 mls @ 125 mls/hr IV ASDIRECTED ASHELY Lactated Ringer's (Ringers, Lactated) 1,000 mls @ 500 mls/hr IV .BOLUS ASHELY Lactated Ringer's (Ringers, Lactated) 1,000 mls @ 125 mls/hr IV ASDIRECTED ASHELY Ibuprofen (Motrin) 800 mg PO Q8H PRN PRN Reason: mild pain or fever Last Admin: 06/14/18 08:13 Dose: 800 mg Lidocaine HCl (Xylocaine-Mpf 1%) 10 ml INJECT ASDIRECTED PRN PRN Reason: Perineal Repair Methylergonovine Maleate (Methergine) 0.2 mg IM ASDIRECTED PRN PRN Reason: Hemorrhage Methylergonovine Maleate (Methergine) 0.2 mg IM ONETIME PRN PRN Reason: Excessive Vaginal Bleeding Misoprostol (Cytotec) 800 mcg RECTAL ASDIRECTED PRN PRN Reason: Hemorrhage Misoprostol (Cytotec) 800 mcg RECTAL ASDIRECTED PRN PRN Reason: Excessive bleeding Nalbuphine HCl (Nubain) 20 mg IM Q3H PRN PRN Reason: Pain Last Admin: 06/12/18 04:11 Dose: 20 mg Naloxone HCl (Narcan) 0.1 mg IVPUSH SEECOMMENT PRN PRN Reason: Respiratory Depression Ondansetron HCl (Zofran) 4 mg IV Q4H PRN PRN Reason: Nausea/Vomiting Last Admin: 06/12/18 21:32 Dose: 4 mg Ondansetron HCl (Zofran) 4 mg IV Q4H PRN PRN Reason: Nausea/Vomiting Oxycodone/Acetaminophen (Percocet 325-5 Mg) 1 tab PO Q4H PRN PRN Reason: Pain (moderate 4-6) Oxycodone/Acetaminophen (Percocet 325-5 Mg) 2 tab PO Q4H PRN PRN Reason: Pain (moderate 4-6) Last Admin: 06/14/18 08:14 Dose: 2 tab Prenat Multivit/[place]/Iron/Folic Ac ( Plus Iron) 1 each PO DAILY ASHELY Last Admin: 06/14/18 08:12 Dose: 1 each Simethicone (Simethicone) 160 mg PO QID ASHELY Last Admin: 06/14/18 08:13 Dose: 160 mg Sodium Chloride (Saline Flush) 10 ml FLUSH ASDIRECTED PRN PRN Reason: Keep Vein Open Zolpidem Tartrate (Ambien) 5 mg PO BEDTIME PRN PRN Reason: Insomnia Discontinued Medications Bupivacaine HCl/Dextrose (Marcaine 0.75% Spinal) Confirm Administered Dose 2 ml .ROUTE .STK-MED ONE Stop: 06/12/18 21:38 Last Admin: 06/12/18 22:28 Dose: Not Given Butorphanol Tartrate (Stadol) 1 mg IVPUSH ONETIME ONE Stop: 06/12/18 14:27 Last Admin: 06/12/18 15:45 Dose: 1 mg Carboprost Tromethamine (Hemabate Ds) 250 mcg IM ONETIME ONE Stop: 06/13/18 02:33 Last Admin: 06/13/18 08:18 Dose: Not Given Citric Acid/Sodium Citrate (Bicitra Solution) 30 ml PO ONETIME ONE Stop: 06/13/18 02:33 Last Admin: 06/13/18 07:04 Dose: Not Given Epinephrine HCl (Adrenalin) Confirm Administered Dose 1 mg .ROUTE .STK-MED ONE Stop: 06/12/18 21:39 Last Admin: 06/12/18 22:28 Dose: Not Given Fentanyl (Sublimaze) Confirm Administered Dose 100 mcg .ROUTE .STK-MED ONE Stop: 06/12/18 21:39 Last Admin: 06/12/18 22:29 Dose: Not Given Ferrous Sulfate (Ferrous Sulfate) 325 mg PO BRK [facility] Last Admin: 06/13/18 08:40 Dose: 325 mg Sodium Chloride (Normal Saline) 1,000 mls @ 800 mls/hr IRR ASDIRECTED ASHELY; Protocol Stop: 06/14/18 00:31 Last Admin: 06/13/18 00:20 Dose: 800 mls/hr Cefazolin Sodium/Dextrose 2 gm (/ Premix) 50 mls @ 100 mls/hr IV ONETIME ONE Stop: 06/13/18 03:01 Last Admin: 06/13/18 03:03 Dose: 100 mls/hr Oxytocin/Sodium Chloride (Pitocin In Ns 30 Unit/500 Ml) Confirm Administered Dose 60 unit in 1,000 mls @ as directed .ROUTE .STK-MED ONE Stop: 06/13/18 02:46 Ketorolac Tromethamine (Toradol) 30 mg IVPUSH Q6H [facility] Stop: 06/13/18 14:46 Last Admin: 06/13/18 08:18 Dose: Not Given Ketorolac Tromethamine (Toradol) 30 mg IVPUSH Q6H [facility] Stop: 06/13/18 22:01 Last Admin: 06/13/18 22:02 Dose: 30 mg Measles/Mumps/Rubella Vaccine Live (M-M-R Ii Vaccine) 0.5 ml SUBCUT .ONCE ONE Stop: 06/13/18 02:33 Sufentanil Citrate (Sufenta) Confirm Administered Dose 50 mcg .ROUTE .STK-MED ONE Stop: 06/12/18 21:40 Last Admin: 06/12/18 22:29 Dose: Not Given - Infant Interaction Infant Disposition, : [place] in Room with Family Infant Interaction: Holding Infant Feeding: Breastfed ; Nursed Well Support Person: Significant Other - Recovery Exam Fundal Tone: Firm Fundal Level: 2 Fingerbreadths Below Umbilicus Fundal Placement: Midline Lochia Amount: Small Lochia Color: Rubra/Red Perineum Description: Intact, Minimal Bruising/Swelling Episiotomy/Laceration: None Bladder Status: Nonpalpable, Indwelling Catheter in Place Urinary Elimination: Indwelling Catheter - Exam General: Alert, Oriented, Cooperative, No Acute Distress HEENT: Pupils Equal, Pupils Reactive, EOMI, Mucous Membr. Moist/Nibbe Neck: Supple Lungs: Clear to Auscultation, Normal Respiratory Effort Cardiovascular: Regular Rate, Regular Rhythm, No Murmurs GI/Abdominal Exam: Normal Bowel Sounds, Soft, Non-Tender, No Organomegaly, No Distention, Other (Incision Clean Dry and Intact) Extremities: Normal Inspection, Normal Range of Motion, Non-Tender, No Pedal Edema, Normal Capillary Refill Skin: Warm, Dry, Intact Wound/Incisions: Healing Well, Dressing Dry and Intact, No Drainage Neurological: No New Focal Deficit Psy/Mental Status: Alert, Normal Affect, Normal Mood - Problem List Review Problem List Initiated/Reviewed/Updated: Yes - My Orders Last 24 Hours: My Active Orders 06/13/18 09:00 Vit with Ca/FA/Iron [ Plus Iron] 1 each PO DAILY Simethicone 160 mg PO QID 06/13/18 18:00 Ferrous Sulfate 325 mg PO BIDMEALS 06/13/18 23:00 Ibuprofen [Motrin] 800 mg PO Q8H PRN 06/13/18 Dinner Nothing Per Oral Diet [DIET] 06/13/18 Lunch Nothing Per Oral Diet [DIET] - Assessment Assessment:: PPD/POD # 1 S/P Primary low transverse section Doing well Chronic anemia of and acute anemia secondary to blodd loss. - Plan Plan:: Continue present care Will remove Ortega catheter Enrique start ambulating PNV and ferrous sulfate
[2018-06-15] MEDS: Ibuprofen 800 MG Tab PO PRN ×3 (02:09→21:41)
[2018-06-15] MEDS: Acetaminophen/oxyCODONE 325-5 MG Tab PO PRN ×5 (02:09→21:42)
--- NOTE | 2018-06-15 03:47 | PCM.PNPP ---
- General Info Date of Service: 06/15/18 (POD/PPD # 2 S/P Primary section) Functional Status: Reports: Pain Controlled, Tolerating Diet, Ambulating, Urinating - Review of Systems General: Reports: No Symptoms HEENT: Reports: No Symptoms Pulmonary: Reports: No Symptoms Cardiovascular: Reports: No Symptoms Gastrointestinal: Reports: No Symptoms Genitourinary: Reports: No Symptoms Musculoskeletal: Reports: No Symptoms Skin: Reports: No Symptoms Neurological: Reports: No Symptoms Psychiatric: Reports: No Symptoms - General Info Date of Service: 06/15/18 (POD/PPD # 2 S/P Primary section) - Patient Data Vital Signs - Most Recent: Last Vital Signs Temp 99.6 F 06/14/18 16:00 Pulse 85 06/14/18 16:00 Resp 16 06/14/18 16:00 BP 99/71 06/14/18 16:00 Pulse Ox 99 06/14/18 16:00 Weight - Most Recent: 172 lb I&O - Last 24 Hours: Intake & Output 06/14/18 06/14/18 06/15/18 14:59 22:59 06:59 Output Total 2100 Balance -2100 Lab Results - Last 24 Hours: Laboratory Results - last 24 hr 06/14/18 Range/Units 06:17 WBC 12.1 H (5.0-10.0) 10^3/uL RBC 2.92 L (4.2-5.4) 10^6/uL Hgb 8.0 L D (12.0-16.0) g/dL Hct 25.6 L (37.0-47.0) % MCV 87.7 (80-100) fL MCH 27.4 (27.0-34.0) pg MCHC 31.3 L (33.0-35.0) g/dL Plt Count 187 (150-450) 10^3/uL Med Orders - Current: Current Medications Acetaminophen (Tylenol) 650 mg PO Q4H PRN PRN Reason: Pain (Mild 1-3) and fever Acetaminophen (Tylenol) 650 mg PO Q6H PRN PRN Reason: mild pain or fever Butorphanol Tartrate (Stadol) 1 mg IVPUSH Q3H PRN PRN Reason: Pain Last Admin: 06/12/18 18:57 Dose: 1 mg Carboprost Tromethamine (Hemabate Ds) 250 mcg IM ASDIRECTED PRN PRN Reason: HEMORRHAGE Diphenhydramine HCl (Benadryl) 25 mg IVPUSH Q6H PRN PRN Reason: Itching or Nausea Docusate Sodium (Colace) 100 mg PO Q12H PRN PRN Reason: Constipation Last Admin: 06/14/18 21:46 Dose: 100 mg Ephedrine Sulfate (Ephedrine Sulfate) 5 mg IVPUSH SEECOMMENT PRN PRN Reason: Other Fentanyl (Sublimaze) 100 mcg IVPUSH Q1H PRN PRN Reason: Pain (moderate 4-6) Ferrous Sulfate (Ferrous Sulfate) 325 mg PO BIDMEALS [facility] Last Admin: 06/14/18 17:20 Dose: 325 mg Lactated Ringer's (Ringers, Lactated) 1,000 mls @ 125 mls/hr IV ASDIRECTED [facility] Last Admin: 06/13/18 16:41 Dose: 125 mls/hr Oxytocin/Sodium Chloride (Pitocin In Ns 30 Unit/500 Ml) 30 unit in 500 mls @ 1 mls/hr IV TITRATE ASHELY; Protocol Last Titration: 06/13/18 02:15 Dose: 0 munits/min, 0 mls/hr Lactated Ringer's (Ringers, Lactated) 500 mls @ 125 drops/hr IV .BOLUS ONE Stop: 06/15/18 03:45 Last Admin: 06/14/18 09:21 Dose: Not Given Lactated Ringer's (Ringers, Lactated) 1,000 mls @ 125 mls/hr IV ASDIRECTED [facility] Last Admin: 06/12/18 23:17 Dose: 125 mls/hr Oxytocin/Sodium Chloride (Pitocin In Ns 30 Unit/500 Ml) 30 unit in 500 mls @ 2 mls/hr IV TITRATE ASHELY; Protocol Last Titration: 06/13/18 08:41 Dose: Infused Tranexamic Acid 1,000 mg/ (Sodium Chloride) 110 mls @ 660 mls/hr IV ONETIME PRN PRN Reason: Bleeding Tranexamic Acid 1,000 mg/ (Sodium Chloride) 110 mls @ 660 mls/hr IV ONETIME PRN PRN Reason: Bleeding Tranexamic Acid 1,000 mg/ (Sodium Chloride) 110 mls @ 660 mls/hr IV ONETIME PRN PRN Reason: Bleeding Lactated Ringer's (Ringers, Lactated) 1,000 mls @ 125 mls/hr IV ASDIRECTED ASHE[facility] Lactated Ringer's (Ringers, Lactated) 1,000 mls @ 500 mls/hr IV .BOLUS ASHELY Lactated Ringer's (Ringers, Lactated) 1,000 mls @ 125 mls/hr IV ASDIRECTED [facility] Ibuprofen (Motrin) 800 mg PO Q8H PRN PRN Reason: mild pain or fever Last Admin: 06/15/18 02:09 Dose: 800 mg Lidocaine HCl (Xylocaine-Mpf 1%) 10 ml INJECT ASDIRECTED PRN PRN Reason: Perineal Repair Methylergonovine Maleate (Methergine) 0.2 mg IM ASDIRECTED PRN PRN Reason: Hemorrhage Methylergonovine Maleate (Methergine) 0.2 mg IM ONETIME PRN PRN Reason: Excessive Vaginal Bleeding Misoprostol (Cytotec) 800 mcg RECTAL ASDIRECTED PRN PRN Reason: Hemorrhage Misoprostol (Cytotec) 800 mcg RECTAL ASDIRECTED PRN PRN Reason: Excessive bleeding Nalbuphine HCl (Nubain) 20 mg IM Q3H PRN PRN Reason: Pain Last Admin: 06/12/18 04:11 Dose: 20 mg Naloxone HCl (Narcan) 0.1 mg IVPUSH SEECOMMENT PRN PRN Reason: Respiratory Depression Ondansetron HCl (Zofran) 4 mg IV Q4H PRN PRN Reason: Nausea/Vomiting Last Admin: 06/12/18 21:32 Dose: 4 mg Ondansetron HCl (Zofran) 4 mg IV Q4H PRN PRN Reason: Nausea/Vomiting Oxycodone/Acetaminophen (Percocet 325-5 Mg) 1 tab PO Q4H PRN PRN Reason: Pain (moderate 4-6) Oxycodone/Acetaminophen (Percocet 325-5 Mg) 2 tab PO Q4H PRN PRN Reason: Pain (moderate 4-6) Last Admin: 06/15/18 02:09 Dose: 2 tab Prenat Multivit/[place]/Iron/Folic Ac ( Plus Iron) 1 each PO DAILY [facility] Last Admin: 06/14/18 08:12 Dose: 1 each Simethicone (Simethicone) 160 mg PO QID [facility] Last Admin: 06/14/18 21:46 Dose: 160 mg Sodium Chloride (Saline Flush) 10 ml FLUSH ASDIRECTED PRN PRN Reason: Keep Vein Open Zolpidem Tartrate (Ambien) 5 mg PO BEDTIME PRN PRN Reason: Insomnia Discontinued Medications Bupivacaine HCl/Dextrose (Marcaine 0.75% Spinal) Confirm Administered Dose 2 ml .ROUTE .STK-MED ONE Stop: 06/12/18 21:38 Last Admin: 06/12/18 22:28 Dose: Not Given Butorphanol Tartrate (Stadol) 1 mg IVPUSH ONETIME ONE Stop: 06/12/18 14:27 Last Admin: 06/12/18 15:45 Dose: 1 mg Carboprost Tromethamine (Hemabate Ds) 250 mcg IM ONETIME ONE Stop: 06/13/18 02:33 Last Admin: 06/13/18 08:18 Dose: Not Given Citric Acid/Sodium Citrate (Bicitra Solution) 30 ml PO ONETIME ONE Stop: 06/13/18 02:33 Last Admin: 06/13/18 07:04 Dose: Not Given Epinephrine HCl (Adrenalin) Confirm Administered Dose 1 mg .ROUTE .STK-MED ONE Stop: 06/12/18 21:39 Last Admin: 06/12/18 22:28 Dose: Not Given Fentanyl (Sublimaze) Confirm Administered Dose 100 mcg .ROUTE .STK-MED ONE Stop: 06/12/18 21:39 Last Admin: 06/12/18 22:29 Dose: Not Given Ferrous Sulfate (Ferrous Sulfate) 325 mg PO BRK [facility] Last Admin: 06/13/18 08:40 Dose: 325 mg Sodium Chloride (Normal Saline) 1,000 mls @ 800 mls/hr IRR ASDIRECTED [facility]; Protocol Stop: 06/14/18 00:31 Last Admin: 06/13/18 00:20 Dose: 800 mls/hr Cefazolin Sodium/Dextrose 2 gm (/ Premix) 50 mls @ 100 mls/hr IV ONETIME ONE Stop: 06/13/18 03:01 Last Admin: 06/13/18 03:03 Dose: 100 mls/hr Oxytocin/Sodium Chloride (Pitocin In Ns 30 Unit/500 Ml) Confirm Administered Dose 60 unit in 1,000 mls @ as directed .ROUTE .STK-MED ONE Stop: 06/13/18 02:46 Ketorolac Tromethamine (Toradol) 30 mg IVPUSH Q6H [facility] Stop: 06/13/18 14:46 Last Admin: 06/13/18 08:18 Dose: Not Given Ketorolac Tromethamine (Toradol) 30 mg IVPUSH Q6H [facility] Stop: 06/13/18 22:01 Last Admin: 06/13/18 22:02 Dose: 30 mg Measles/Mumps/Rubella Vaccine Live (M-M-R Ii Vaccine) 0.5 ml SUBCUT .ONCE ONE Stop: 06/13/18 02:33 Last Admin: 06/14/18 13:27 Dose: Not Given Sufentanil Citrate (Sufenta) Confirm Administered Dose 50 mcg .ROUTE .STK-MED ONE Stop: 06/12/18 21:40 Last Admin: 06/12/18 22:29 Dose: Not Given - Infant Interaction Disposition, : in Room with Family Infant Interaction: Holding Infant Infant Feeding: Breastfed ; Nursed Well Support Person: Significant Other - Recovery Exam Fundal Tone: Firm Fundal Level: 2 Fingerbreadths Below Umbilicus Fundal Placement: Midline Lochia Amount: Small Lochia Color: Rubra/Red Perineum Description: Intact, Minimal Bruising/Swelling Episiotomy/Laceration: None Bladder Status: Nonpalpable, Indwelling Catheter in Place Urinary Elimination: Indwelling Catheter - Exam General: Alert, Oriented, Cooperative, No Acute Distress HEENT: Pupils Equal, Pupils Reactive Neck: Supple Lungs: Clear to Auscultation, Normal Respiratory Effort Cardiovascular: Regular Rate, Regular Rhythm GI/Abdominal Exam: Normal Bowel Sounds, Soft, Non-Tender, No Organomegaly Extremities: Normal Inspection, Normal Range of Motion, Non-Tender, No Pedal Edema Skin: Warm, Dry, Intact Wound/Incisions: Healing Well, Dressing Dry and Intact, No Drainage Neurological: No New Focal Deficit, Normal Gait, Normal Speech Psy/Mental Status: Alert, Normal Affect, Normal Mood - Problem List Review Problem List Initiated/Reviewed/Updated: Yes - Assessment Assessment:: PPD/POD # 2 S/P Primary low transverse section Doing well Chronic anemia of and acute anemia secondary to blodd loss. - Plan Plan:: Continue present care Discharge planning for tomorrow.
--- NOTE | 2018-06-15 07:11 | OR ---
DATE: 06/13/2018 PREOPERATIVE DIAGNOSES: 1. A 40-2/7 weeks' intrauterine . 2. Early labor. 3. Low amniotic fluid index of 5.27. 4. Artificial rupture of membranes. 5. Thick meconium-stained fluid. 6. Pitocin augmentation. 7. intolerance to labor with recurrent deep variable decelerations. 8. Arrest of dilatation. 9. Arrest of descent. POSTOPERATIVE DIAGNOSES: 1. A 40-2/7 weeks' intrauterine . 2. Early labor. 3. Low amniotic fluid index of 5.27. 4. Artificial rupture of membranes. 5. Thick meconium-stained fluid. 6. Pitocin augmentation. 7. intolerance to labor with recurrent deep variable decelerations. 8. Arrest of dilatation. 9. Arrest of descent. 10.Delivery of a viable male weighing 7 pounds 4 ounces, 20 inches long with scores of 9 at 1 minute and 9 at 5 minutes. NIPPING MACHINE OPERATOR: Lupe Brantley MD COMPLICATIONS: None. ESTIMATED BLOOD LOSS: 900 mL. FLUIDS: Crystalloid/LR. DRAINS: Ortega catheter. PATHOLOGY: None. ANESTHESIA: Spinal anesthesia with Duramorph. FINDINGS: Normal uterus, tubes, and ovaries. Viable male infant weighing 7 pounds 4 ounces, 20 inches long with scores of 9 at 1 minute and 9 at 5 minutes. INDICATIONS FOR DELIVERY: Ms. Cleaning is a 22-year-old 1, para 0 female who reported to Labor and Delivery with increasing force and frequency of contractions that becoming stronger and closer together. With her discomfort, I was not comfortable sending her home, so I did do an ultrasound to check for JAME, which turned out to be 5.27. With that and with her cervix changing to 2 cm and 90% effaced, she was kept. Once she started changing her cervix slightly, artificial rupture of membranes occurred with thick meconium-stained fluid noted. She then started frankie and was becoming more uncomfortable. She did receive some Nubain and Stadol for pain. Once she was 5 cm dilated, 100% effaced, and -1 station, intrathecal anesthesia was accomplished. She tolerated her labor at that point quite well. She did get to 6 cm dilated, but that is where she stayed. She had no cervical change in over 4 hours. She started having variable decelerations, so intrauterine pressure catheter and scalp electrode were placed. An amnioinfusion of normal saline 400 mL bolus over 1/2 hour, then 100 mL/h maintenance was accomplished. She then started having repetitive deep variable decelerations, so the Pitocin was turned off. The fetus recovered, so we again tried the Pitocin, but she was not making any change. Her [place] units were less than 200, so again, we started getting stronger contractions, but again, she had repetitive deep variable decelerations, and she had 2 prolonged decelerations, so at that point, Pitocin was turned off. Since she had made no change in station or dilatation, and she was having intolerance to labor, a section was called. DESCRIPTION OF PROCEDURE: The patient was taken to the operating room with IV running. She was placed supine on the operating room table. After adequate spinal anesthesia was obtained, she was prepped and draped in the usual sterile fashion in the dorsal supine position with a leftward tilt. A Pfannenstiel skin incision was then made. This was carried down to the fascia with care. The fascia was nicked in midline and extended laterally. Fascia was taken off the rectus muscles superiorly and inferiorly. The rectus muscles were in the midline. The peritoneal cavity was entered. An Carmine O-ring retractor was then placed. A low transverse incision in the uterus was then accomplished. This was extended laterally. The 's head was then brought through the incision site as well as rest of the . The nose and mouth were suctioned. The cord was clamped and cut. The infant was taken over to the warmer with the nurses and Dr. Brantley. Cord blood was obtained. The placenta was then delivered by simple expression intact. The uterus was cleared of all clots and debris. The uterus was then closed with a double-layer closure of #1 Vicryl suture in a running, locked fashion. Excellent hemostasis was noted. The uterus, tubes, and ovaries were inspected and noted to be normal. The peritoneal cavity was irrigated with 2 L of sterile water. Excellent hemostasis was noted. The gutters were cleared of all clots and debris. The incision was reinspected and noted to be dry. At this point, the rectus muscles and peritoneum were reapproximated with 0 chromic suture in a running, nonlocked fashion. Excellent hemostasis was noted. The fascia was then reapproximated with 0 PDS suture in a running, nonlocked fashion. Excellent hemostasis was noted. The subcutaneous tissue was irrigated with normal saline and dried. The skin was then reapproximated with 4-0 Monocryl suture in a subcuticular fashion. Excellent hemostasis was noted. The skin was then covered with Dermabond for dressing. The patient tolerated the procedure quite well. All sponges, needle, and instrument counts were correct by the nurse in attendance x2. The patient received 2 g of Ancef IV before the procedure. The patient received 20 units of Pitocin after delivery of the placenta. There was clear yellow urine noted to emanate from the Ortega catheter throughout the entire procedure. The patient was taken to the PACU awake in stable condition. NOAH /[id number]
[2018-06-15] MEDS: Prenatal Multivitamin with Calcium/Folic Acid/Iron Tab PO SCH (09:22)
[2018-06-15] MEDS: Simethicone 80 MG Tab.Chew PO SCH ×4 (09:23→21:41)
[2018-06-15] MEDS: Ferrous Sulfate 325 MG Tab PO SCH ×2 (09:23→17:33)
[2018-06-15] MEDS: Docusate Sodium 100 MG Cap PO PRN (17:33)
[2018-06-16] MEDS: Acetaminophen/oxyCODONE 325-5 MG Tab PO PRN ×2 (02:07→08:19)
[2018-06-16] MEDS: Docusate Sodium 100 MG Cap PO PRN (08:17)
[2018-06-16] MEDS: Simethicone 80 MG Tab.Chew PO SCH (08:17)
[2018-06-16] MEDS: Ferrous Sulfate 325 MG Tab PO SCH (08:18)
[2018-06-16] MEDS: Prenatal Multivitamin with Calcium/Folic Acid/Iron Tab PO SCH (08:18)
[2018-06-16] MEDS: Ibuprofen 800 MG Tab PO PRN (08:18)
[2018-06-16 09:01] VITALS: BP 115/60
[2018-06-16] MEDS ORDERED: Oxytocin/Normal Saline 30 UNIT/500 ML BAG IV ONE (14:21)
[2018-06-16] MEDS ORDERED: ePHEDrine 50 MG/ML SDV IV ONE (15:21)
[2018-06-16] MEDS ORDERED: Ondansetron 4 MG/2 ML SDV IV ONE (15:21)
[2018-06-16] MEDS ORDERED: Ketorolac 30 MG/ML SDV IVPUSH ONE (15:21)
[2018-06-16] MEDS ORDERED: Bupivacaine 0.75%/D5W 2 ML Amp INJECT ONE ×2 (15:21→15:23)
[2018-06-16] MEDS ORDERED: Lactated Ringers 1,000 ML IV ONE (15:21)
[2018-06-16] MEDS ORDERED: Morphine PF 1 MG/ML Amp ONE (15:21)
[2018-06-16] MEDS ORDERED: EPINEPHrine 1 MG/ML SDV IV ONE (15:23)
[2018-06-16] MEDS ORDERED: fentaNYL 100 MCG/2 ML SDV ITHECAL ONE (15:23)
--- NOTE | 2018-06-18 14:33 | DISCH ---
ADMITTING DIAGNOSES: 1. A 40 and 2/7 weeks' intrauterine . 2. Early labor. 3. Low amniotic fluid index of 5.2. 4. Blood type B positive. 5. Group B streptococcus negative. 6. Rubella immune. DISCHARGE DIAGNOSES: 1. A 40 and 2/7 weeks' intrauterine . 2. Early labor. 3. Low amniotic fluid index of 5.2. 4. Blood type B positive. 5. Group B streptococcus negative. 6. Rubella immune. 7. Status post artificial rupture of membranes with thick meconium-stained fluid. 8. Pitocin augmentation of labor. 9. intolerance of labor with recurrent deep variable decelerations. 10.Arrest of dilatation and descent. 11.Status post primary low-transverse section. 12.Delivery of viable male weighing 7 pounds 4 ounces. scores of 9 and 9. HISTORY: The patient is a 22-year-old female who presented to the hospital with signs and symptoms of early labor, although she was not making significant change initially. Due to being post dates, ultrasound was performed, and she was found to have a low amniotic fluid index. Her contractions were persistent and painful for her, so a decision was made to proceed with augmentation of labor; and during this process, the baby developed some non-reassuring tracings, and Dr. Huggins managed everything he could to try to get her deliver vaginally including amnioinfusion which was unsuccessful; and ultimately, she went on to a primary section without complications. Please see admission history and physical, operative report, and her progress notes for those details. HOSPITAL COURSE: Since her surgery, she has done well. She is ambulating, tolerating regular diet, voiding without difficulties, had a bowel movement earlier today, and has not developed any symptoms of preeclampsia. She is her baby with some difficulties on one side, but working with the statistical consultant for that. Otherwise, bleeding has been well controlled, and she has had no problems with her surgical site. DISCHARGE CONDITION: Good. PHYSICAL EXAMINATION: Vital Signs: Temperature is 97.4, pulse 89, blood pressure 115/60, respiratory rate of 18, and O2 saturations 98% on room air. Heart: Regular without murmur. Lungs: Clear to auscultation bilaterally. Abdomen: Soft, nontender, positive bowel sounds throughout, and fundus is firm and below the umbilicus. Incision is clean, dry, and intact with a Dermabond noted. Extremities: No edema, erythema, or tenderness is seen. LABORATORY DATA: Final hemoglobin is 8, admission was 10.7. Final platelets of 187 and initial was 227. DISPOSITION: Home with family. DISCHARGE INSTRUCTIONS: Routine postoperative and mother care instructions were provided. She will be on lifting nothing heavier than 50 pounds for the next several weeks. Pelvic rest for 6 weeks. MEDICATIONS: 1. Percocet 5/325 mg 1 to 2 tablets every 4 to 6 hours as needed for pain. 2. Ibuprofen 600 mg every 6 hours as needed for pain. 3. Iron 325 mg twice daily. 4. Colace 100 mg twice daily as needed for constipation. 5. vitamins once daily. FOLLOWUP: She will see me in a couple of weeks for a postoperative check and again in 6 weeks for her exam and discussion of contraception at that time. All of her questions were answered. [facility] /[id number]
== END 2018-06-16 11:25 | disposition home or self-care (01) | DRG 765 ==
LOC: DL.OBCHECK 03:05 → DL.OB 03:21 → OBSVTOIN 06-13 03:21
PROVIDERS: ADMIT Obstetrics & Gynecology; ATTEND Obstetrics & Gynecology
PROC: 10D00Z1 Extraction of Products of Conception, Low, Open Approach (ICD-10-PCS; principal; 2018-06-13)
PROC: 10907ZC Drainage of Amniotic Fluid, Therapeutic from Products of Conception, Via Natural or Artificial Opening (ICD-10-PCS; 2018-06-13)
DX: O76 Abnormality in fetal heart rate and rhythm complicating labor and delivery (principal); D62 Acute posthemorrhagic anemia; Z3A.40 40 weeks gestation of pregnancy; Z37.0 Single live birth; O77.0 Labor and delivery complicated by meconium in amniotic fluid; O62.0 Primary inadequate contractions; O99.02 Anemia complicating childbirth; D63.8 Anemia in other chronic diseases classified elsewhere; O62.1 Secondary uterine inertia
CPT/HCPCS: 36415; 51702; 59025; 76815; 85027; 86850; 86900; 86901; A9270-GY; J0171; J0595; J0690; J1885; J2274; J2300; J2405; J2590; J3010; J7030; J7120

== ENCOUNTER 2018-06-25 22:57 | Emergency (ER) | payer OTHER ==
[2018-06-25 23:24] VITALS: BP 112/73
[2018-06-26] MEDS ORDERED: Silver Sulfadiazine 1% Crm 50 GM Tube TOP ONE ×2 (00:19→00:23)
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
== END 2018-06-26 00:36 | disposition home or self-care (01) ==
LOC: DL.ED 22:57
DX: T24.211A Burn of second degree of right thigh, initial encounter (principal); T24.101A Burn of first degree of unspecified site of right lower limb, except ankle and foot, initial encounter; X12.XXXA Contact with other hot fluids, initial encounter
CPT/HCPCS: 16020; 99283

== ENCOUNTER 2021-10-29 03:50 | Inpatient (IN) | payer BC, OTHER ==
[2021-10-29] MEDS ORDERED: Methylergonovine 0.2 MG Tab PO PRN (04:22)
[2021-10-29] MEDS ORDERED: Oxytocin 10 Units/1 ML SDV IM PRN (04:22)
[2021-10-29] MEDS ORDERED: Tranexamic Acid 1,000 MG in Sodium Chloride 0.9% 100 ML IV PRN (04:22)
[2021-10-29] MEDS ORDERED: Carboprost Tromethamine 250 MCG/1 ML Amp IM PRN (04:22)
[2021-10-29] MEDS ORDERED: Citric Acid/Sodium Citrate Solution 30 ML Cup PO ONE (04:22)
[2021-10-29] MEDS ORDERED: Oxytocin/Normal Saline 30 UNIT/500 ML BAG IV SCH (04:30)
[2021-10-29] MEDS ORDERED: Lactated Ringers 1,000 ML IV SCH ×2 (04:30)
[2021-10-29] MEDS ORDERED: Nalbuphine 10 MG/1 ML Vial IM ONE (04:36)
[2021-10-29] MEDS ORDERED: Citric Acid/Sodium Citrate Solution 30 ML Cup ONE (07:14)
[2021-10-29] MEDS ORDERED: Sodium Chloride 0.9% 10 ML Syringe FLUSH SCH (09:00)
[2021-10-29] MEDS ORDERED: Oxytocin/Normal Saline 60 UNIT/1,000 ML BAG ONE (10:17)
[2021-10-29] MEDS ORDERED: Gentamicin 420 MG in Sodium Chloride 0.9% 100 ML IV ONE (11:30)
[2021-10-29] MEDS: Gentamicin 420 MG in Sodium Chloride 0.9% 100 ML IV ONE ×2 (11:42→14:34)
[2021-10-29] MEDS ORDERED: diphenhydrAMINE 50 MG/ML SDV IVPUSH PRN (12:56)
[2021-10-29] MEDS ORDERED: Ondansetron 4 MG/2 ML SDV IVPUSH PRN (12:56)
[2021-10-29] MEDS ORDERED: ePHEDrine 50 MG/ML SDV IVPUSH PRN (12:56)
[2021-10-29] MEDS ORDERED: Naloxone 2 MG/2 ML Syringe IVPUSH PRN (12:56)
[2021-10-29] MEDS ORDERED: Methylergonovine 0.2 MG/1 ML Amp IM PRN (12:56)
[2021-10-29] MEDS ORDERED: Acetaminophen 325 MG Tab PO PRN (12:56)
[2021-10-29] MEDS ORDERED: Misoprostol 400 MCG (4 X 100 MCG TAB) RECTAL PRN (12:56)
[2021-10-29] MEDS: Lactated Ringers 1,000 ML IV SCH ×2 (13:40→18:05)
[2021-10-29] MEDS ORDERED: Morphine PF 1 MG/ML Amp ONE (14:20)
[2021-10-29] MEDS ORDERED: Ketorolac 30 MG/ML SDV IVPUSH ONE (14:20)
[2021-10-29] MEDS ORDERED: Lactated Ringers 1,000 ML IV ONE (14:20)
[2021-10-29] MEDS ORDERED: Ondansetron 4 MG/2 ML SDV IV ONE (14:20)
[2021-10-29] MEDS ORDERED: Dexamethasone 4 MG/ML SDV IV ONE (14:20)
[2021-10-29] MEDS: Simethicone 80 MG Tab.Chew PO SCH ×2 (17:36→22:14)
[2021-10-29] MEDS: Ketorolac 30 MG/ML SDV IVPUSH SCH ×2 (17:49→23:52)
[2021-10-29] MEDS: Docusate Sodium 100 MG Cap PO PRN (22:14)
[2021-10-30] MEDS: Ketorolac 30 MG/ML SDV IVPUSH SCH (05:58)
[2021-10-30] MEDS: Prenatal Multivitamin with Calcium/Folic Acid/Iron Tab PO SCH (08:10)
[2021-10-30] MEDS: Ferrous Sulfate 325 MG Tab PO SCH (08:10)
[2021-10-30] MEDS: Acetaminophen/oxyCODONE 325-5 MG Tab PO PRN ×3 (08:10→22:22)
[2021-10-30] MEDS: Simethicone 80 MG Tab.Chew PO SCH ×4 (08:10→22:22)
[2021-10-30] MEDS: Docusate Sodium 100 MG Cap PO PRN ×2 (08:10→22:22)
[2021-10-30] MEDS ORDERED: Oxytocin/Normal Saline 30 UNIT/500 ML BAG IV ONE (14:35)
[2021-10-30] MEDS: Ibuprofen 800 MG Tab PO PRN (17:10)
[2021-10-31] MEDS: Ibuprofen 800 MG Tab PO PRN ×2 (04:19→12:15)
[2021-10-31] MEDS: Acetaminophen/oxyCODONE 325-5 MG Tab PO PRN ×3 (04:20→12:15)
[2021-10-31] MEDS: Docusate Sodium 100 MG Cap PO PRN (08:58)
[2021-10-31] MEDS: Simethicone 80 MG Tab.Chew PO SCH ×2 (08:58→12:15)
[2021-10-31] MEDS: Ferrous Sulfate 325 MG Tab PO SCH (08:58)
[2021-10-31] MEDS: Prenatal Multivitamin with Calcium/Folic Acid/Iron Tab PO SCH (08:58)
[2021-10-31 13:20] VITALS: BP 108/70; PULSE 70
== END 2021-10-31 12:15 | disposition home or self-care (01) | DRG 540 ==
LOC: DL.OB 03:50 → OBSVTOIN 12:08
PROVIDERS: ADMIT Family Medicine; ATTEND Family Medicine
PROC: 10D00Z1 Extraction of Products of Conception, Low, Open Approach (ICD-10-PCS; principal; 2021-10-29)
DX: O34.211 Maternal care for low transverse scar from previous cesarean delivery (principal); Z37.0 Single live birth; O99.62 Diseases of the digestive system complicating childbirth; K21.9 Gastro-esophageal reflux disease without esophagitis; K52.9 Noninfective gastroenteritis and colitis, unspecified; Z20.822 Contact with and (suspected) exposure to COVID-19; Z3A.38 38 weeks gestation of pregnancy; Z28.82 Immunization not carried out because of caregiver refusal
CPT/HCPCS: 01961; 36415; 51702; 59025; 85025; 85027; 86850; 86900; 86901; 94010; A9270-GY; J1100; J1580; J1885; J2274; J2300; J2405; J2590; J7120; U0002

== ENCOUNTER 2022-11-24 17:44 | Emergency (ER) | payer BC, MEDICAID ==
[2022-11-24 17:52] VITALS: BP 128/65; PULSE 89
[2022-11-24] MEDS ORDERED: cefTRIAXone 1 GM, Lidocaine 1% 2.1 ML IM ONE ×2 (17:52)
== END 2022-11-24 18:25 | disposition home or self-care (01) ==
LOC: DL.ED 17:44
DX: J02.9 Acute pharyngitis, unspecified (principal); Z88.0 Allergy status to penicillin
CPT/HCPCS: 87430; 96372; 99283; J0696; J3490

== ENCOUNTER 2024-03-16 10:09 | Inpatient (IN) | payer BC ==
[~2024-03-16 10:09] MED LIST: Carboprost Tromethamine 250 MCG/1 ML Amp IM PRN; Methylergonovine 0.2 MG Tab PO PRN; Oxytocin 10 Units/1 ML SDV IM PRN; Sodium Chloride 0.9% 10 ML Syringe FLUSH PRN; Tranexamic Acid 1,000 MG in Sodium Chloride 0.9% 100 ML IV PRN
[2024-03-16] MEDS: Lactated Ringers 1,000 ML IV SCH ×2 (10:40→11:29)
[2024-03-16 10:55] LABS: BASOPHILS PERCENT AUTO 0.5 % (0.0-1.0); EOSINOPHILS PERCENT AUTO 3.5 % (1.0-3.0); HEMATOCRIT 34.6 % (37.0-47.0); HEMOGLOBIN 11.2 g/dL (12.0-16.0); MEAN CORPUSCULAR HEMOGLOBIN 26.9 pg (27.0-34.0); MEAN CORPUSCULAR HGB CONC 32.4 g/dL (33.0-35.0); MONOCYTES PERCENT AUTO 7.8 % (2-8); NEUTROPHILS PERCENT AUTO 69.2 % (42.2-75.2); PLATELET COUNT,PLT 238 10^3/uL (150-450); RED BLOOD CELL COUNT 4.17 10^6/uL (4.2-5.4); WHITE BLOOD CELL COUNT,WBC 7.7 10^3/uL (5.0-10.0)
[2024-03-16] MEDS ORDERED: Dexamethasone 4 MG/ML SDV ONE (11:06)
[2024-03-16] MEDS ORDERED: Ondansetron 4 MG/2 ML SDV ONE (11:06)
[2024-03-16] MEDS ORDERED: Succinylcholine 200 MG/10 ML MDV ONE (11:07)
[2024-03-16] MEDS ORDERED: ceFAZolin 2 GM Vial ONE (11:07)
[2024-03-16] MEDS ORDERED: Oxytocin 10 Units/1 ML SDV ONE (11:07)
[2024-03-16] MEDS ORDERED: Ketorolac 30 MG/ML SDV ONE (11:07)
[2024-03-16] MEDS ORDERED: Oxytocin/Normal Saline 30 UNIT/500 ML BAG ONE (11:25)
[2024-03-16] MEDS: Oxytocin/Normal Saline 30 UNIT/500 ML BAG IV SCH (13:15)
[2024-03-16] MEDS ORDERED: Carboprost Tromethamine 250 MCG/1 ML Amp IM PRN (13:16)
[2024-03-16] MEDS ORDERED: Tranexamic Acid 1,000 MG in Sodium Chloride 0.9% 100 ML IV PRN (13:16)
[2024-03-16] MEDS ORDERED: ePHEDrine 50 MG/ML SDV IVPUSH PRN (13:16)
[2024-03-16] MEDS ORDERED: Acetaminophen/oxyCODONE 325-5 MG Tab PO PRN (13:16)
[2024-03-16] MEDS ORDERED: Acetaminophen 325 MG Tab PO PRN (13:16)
[2024-03-16] MEDS ORDERED: Misoprostol 400 MCG (4 X 100 MCG TAB) RECTAL PRN (13:16)
[2024-03-16] MEDS ORDERED: Naloxone 2 MG/2 ML Syringe IVPUSH PRN (13:16)
[2024-03-16] MEDS ORDERED: Lactated Ringers 1,000 ML IV SCH (13:30)
[2024-03-16] MEDS: Ondansetron 4 MG/2 ML SDV IVPUSH PRN (14:40)
[2024-03-16] MEDS: Sodium Chloride 0.9% 10 ML Syringe FLUSH SCH (18:07)
[2024-03-16] MEDS: Methylergonovine 0.2 MG/1 ML Amp IM PRN (18:20)
[2024-03-16] MEDS: Simethicone 80 MG Tab.Chew PO SCH (18:20)
[2024-03-16] MEDS: Promethazine 25 MG/ML SDV IM ONE (18:20)
[2024-03-16] MEDS: Ketorolac 30 MG/ML SDV IVPUSH SCH (18:23)
[2024-03-16] MEDS: Docusate Sodium 100 MG Cap PO PRN (22:13)
[2024-03-16] MEDS: diphenhydrAMINE 50 MG/ML SDV IVPUSH PRN (23:15)
[2024-03-17] MEDS: ceFAZolin 2 GM Vial IVPUSH ONE (01:37)
[2024-03-17 06:31] LABS: HEMOGLOBIN 9.3 g/dL (12.0-16.0); MEAN CORPUSCULAR HEMOGLOBIN 27.2 pg (27.0-34.0); MEAN CORPUSCULAR HGB CONC 32.1 g/dL (33.0-35.0); MEAN CORPUSCULAR VOLUME 84.8 fL (80-100); RED BLOOD CELL COUNT 3.42 10^6/uL (4.2-5.4); WHITE BLOOD CELL COUNT,WBC 10.9 10^3/uL (5.0-10.0)
[2024-03-17] MEDS: Prenatal Multivitamin with Calcium/Folic Acid/Iron Tab PO SCH (08:38)
[2024-03-17] MEDS: Ferrous Sulfate 325 MG Tab PO SCH (08:38)
[2024-03-17] MEDS: Acetaminophen/oxyCODONE 325-5 MG Tab PO PRN (10:21)
[2024-03-17] MEDS: Ibuprofen 800 MG Tab PO PRN (19:57)
[2024-03-18 11:59] VITALS: BP 102/61; PULSE 84
== END 2024-03-18 11:35 | disposition home or self-care (01) | DRG 540 ==
LOC: DL.OB 10:09 → OBSVTOIN 12:34 → DL.OB 12:34
PROVIDERS: ADMIT Family Medicine; ATTEND Family Medicine
PROC: 10D00Z1 Extraction of Products of Conception, Low, Open Approach (ICD-10-PCS; principal; 2024-03-16 12:00)
DX: O34.211 Maternal care for low transverse scar from previous cesarean delivery (principal); Z37.0 Single live birth; Z3A.39 39 weeks gestation of pregnancy
CPT/HCPCS: 36415; 59025; 85025; 85027; 86850; 86900; 86901; A9270-GY; J0330; J1200; J1885; J2210; J2405; J2550; J2590; J7120

== ENCOUNTER 2024-05-25 21:30 | Emergency (ER) | payer BC ==
[2024-05-25 21:52] VITALS: BP 126/83; PULSE 99
[2024-05-25] MEDS: Take Home: Cephalexin 500 MG Cap, 6 Cap Pack PO ONE (22:01)
== END 2024-05-25 22:06 | disposition home or self-care (01) ==
LOC: DL.ED 21:30
DX: N61.0 Mastitis without abscess (principal); Z79.899 Other long term (current) drug therapy; Z88.0 Allergy status to penicillin
CPT/HCPCS: 99283; A9270